=== PATIENT | female | born 1950 | race Caucasian/White ===

== ENCOUNTER 2016-08-20 20:15 | Emergency (ER) | payer MEDICARE ==
--- NOTE | 2016-08-21 03:22 | ER ---
ADMIT: 08/20/2016 RM/LOC: ER [facility] MR#: [id number] [facility] [address] [place], [place] [id number] DEE OLSON [address] [place] [id number] Emergency Room Report SEX: F AGE: 66 : 1950 DATE: 08/20/2016 The patient is a 66-year-old female with allergic rhinitis, COPD, continues to use marijuana, quit tobacco in 2001. Exam remarkable for nontoxic, afebrile female, decreased breath sounds and faint expiratory wheeze. Chest x-ray confirmed fibrotic lung disease, no infiltrate. Normal CBC, CMP, lactic acid. CRP elevated at 3.35. Normal BNP 167, procalcitonin, and negative troponin. Responded well to 2 DuoNebs aerosol, Solu-Medrol 125 mg push, magnesium 2 g IV piggyback. Home with Augmentin 875 mg b.i.d. x10 days, prednisone 40 mg q.a.m. x5 days. Strongly encourage Neti Pot wash b.i.d. followed by Flonase spray b.i.d., levocetirizine 5 mg daily and loratadine 10 mg daily. Follow up with Dr. Larios as needed. Rui Gomez MD/ bozena JOB #: [id number] CC: Rui Gomez MD, Attending Physician Randi Larios PA-C, Family Physician Randi Larios PA-C
== END 2016-08-20 22:05 | disposition home or self-care (01) ==
LOC: ER 20:15
DX: J44.1 Chronic obstructive pulmonary disease with (acute) exacerbation (principal); J30.2 Other seasonal allergic rhinitis; E11.9 Type 2 diabetes mellitus without complications; E78.5 Hyperlipidemia, unspecified; Z87.891 Personal history of nicotine dependence; Z79.84 Long term (current) use of oral hypoglycemic drugs; Z79.899 Other long term (current) drug therapy; Z98.890 Other specified postprocedural states